=== PATIENT | female | born 2000 | race Caucasian/White ===

== ENCOUNTER 2025-06-10 13:15 | Outpatient (RCR) | payer BC, SELFPAY ==
[2025-05-28 10:40] VITALS: BMI 38.2
--- NOTE | 2025-05-28 12:20 | PC.ADMIT ---
Patient is a 24 year old college student who was referred to [facility] by her therapist secondary to stopping her medications 2 months ago and is now struggling with increased sxs of depression. According to Integrative Assessment patient spoke to crisis on 05/25/25. Patient is alert and oriented x4. She is calm and cooperative. She presented with depressed mood and anxious affect. She denied SI currently. Patient reports she stopped medications two months ago. Stated she forgot to take them one day and felt great and thought she did not need to take the medications anymore. Stated she was tired of taking medications. Patient stated, I did not notice the downward spiral I was headed towards it. It was slow and I did not notice it. I was not doing well. Patient was given a copy of her safety plan if needed. Patient reports she is on a medical withdrawal from [facility]. Patient stated, I have my associates in criminal justice and going to [employer] to get BA in Criminal Justice. I asked what her goal is when she graduates and patient stated, My goal is to reintegrate people in the criminal justice system specifically juveniles and to help them stay out of the system . Patient identified her supports stating, definitely my main family my parents and my siblings. I can go to them with anything. If I do I go to my brother first and then my family . Patient stated she has a twin brother who she is close to who is currently in college for accounting. She stated he is very smart along with her other family members. Patient stated that she does not have access to medications as her mother is holding on to them as a precaution. Patient also stated her mother did a deep dive into her room to look for any other medications. Patient denied having any other medications available to her. Asked patient how the groups were going for her today. She stated she realized after hearing others talk in group that she does not have it that bad . Medications updated with patient and patient's pharmacy. Patient stated she is only prescribed Rexulti at this time and is currently taking 1 mg daily.
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
--- NOTE | 2025-06-04 14:32 | HO.PHP ---
Tabby had left early for the day due to expressing struggling with a group member and being easily triggered by the noises that were being made. Tabby reported no safety concerns and stated she will be in attendance to program on Saturday.
--- NOTE | 2025-06-07 22:21 | P.PNPSP_ITS ---
Subjective Subjective Date of Service: 06/04/25 Reason For Visit: depression,PTSD Interim History: Patient seen for follow-up. Reviewd interim events. It's been a lot Patient got triggered in groups the other day and again today. She has reached 2 mg of the Rexulti, not sure it is doing anything. MOod still low, reactive, high anxiety. Mood is feels like someone sitting on my chest DEnies any CP, says it's her anxiety. Feels the need to get up and loeave group from the anxiety. She is agreeable to a short trials of Ativan, just to help wtih toleating groups. Denies h/h/SI. No substance or alchol use. Medication Compliance: Yes Side effects from medications: No Attending Groups: Yes Review of Systems Acute medical concerns: No Mental Status Exam Mental Status Exam Narrative: Calm, cooperative, alert, oriented. Mood anxious, depressed, affect constricted. Speech normal. No evidence of thought disorder. Thought content relevant to stressors, denies hopelessness or SI. Denies perceptual disturbance and does not appear to be internally preoccupied. Insight/judgment fair to good. Diagnostics Vital Signs (24Hr): BMI result Body Mass Index 38.2 Assessment & Plan Assessment & Plan (1) MDD (major depressive disorder), recurrent severe, without psychosis: Status: Acute Code(s): F33.2 - Major depressive disorder, recurrent severe without psychotic features (2) HI (generalized anxiety disorder): Status: Acute Code(s): F41.1 - Generalized anxiety disorder (3) PTSD (post-traumatic stress disorder): Status: Acute Code(s): F43.10 - Post-traumatic stress disorder, unspecified Plan cont PHP continue Lamictal 25 mg /day (increase by 25 mg/d q 2 weeks until titrated to 1 00 mg as tolerated) taper Rexulti to 1.5 mg 1 mg tomorrow and 0.5 mg and then off start ABilify and gradually titrate from 2-4 mg qhs start brief trial of lorazepam Routine lab work as indicated EKG, routine for baseline QTc for medication considerations as indicated UDS as indicated MassPat reviewed Continue to monitor Patient educated on: diagnosis and medication risk/benefits Informed Consent: understands Reason for contiued partial hosp. stay Substantial Risk for: med/psych decompensation Certification I certify that partial hospital treatment is medically necessary due to the symptoms and problems resulting from the patient's mental illness and the failure to treat the patient at the partial hospital level of care would likely result in the patient requiring inpatient psychiatric care which could not be prevented at a less intensive level of care. Total time managing care of this patient today __30__ minutes. Discharge Plan Discharge Attending provider: Josefa Coleman Medications: New lorazepam [Ativan] 0.5 mg tablet 0.5 mg PO DAILY PRN (Reason: anxiety) Qty: 10 0RF lamotrigine 25 mg tablet See Rx Instructions .ROUTE .COMPLEX Qty: 90 0RF Rx Instructions: take 2 tablets po daily for 2 weeks, then increase to 75 mg daily Continued aripiprazole 2 mg tablet 2 mg PO BEDTIME Qty: 30 0RF Discontinued Rexulti 2 mg Tablet 2 mg PO DAILY Patient Comments: Patient stated she is taking 1 mg currently. Rx Instructions: Patient stated she is taking 1 mg currently. Patient Education: Mood Disorders (ED), PTSD (Post Traumatic Stress Disorder) (DC), Anxiety (ED) Print Language: [place]
--- NOTE | 2025-06-10 23:31 | HO.PHPPROGNO ---
Subjective Subjective Date of Service: 06/10/25 Reason For Visit: depression,PTSD Interim History: Patient seen for follow-up, anticipating discharge at the end of program today.? I'm doing good . Used lorazepam a few times and it was helpful. Just finds it helpful just knowing there is an option to take it and finds she can ride out the anxiety. DUe to move up on Lamictal to 50 mg tomorrow. ABilify 2 mg well-tolerated and has been helpful for depression, mood and anxiety. Reports no acute issues or concerns. Medication compliant, medications well-tolerated. Denies any adverse effects.? Mood is stable.? Denies any hopelessness or SI. Denies thoughts of harming self or others at this time. Denies any aggressive ideation or HI. Denies any paranoia or AH or VH. Sleep, appetite, energy stable. Medication Compliance: Yes Side effects from medications: No Attending Groups: Yes Review of Systems Acute medical concerns: No Mental Status Exam Mental Status Exam Narrative: Alert, oriented, in no acute distress. Calm, cooperative. Mood stable, affect appropriate. Speech normal. Thought process linear, coherent, more goal-directed. Thought content related to stressors, future-oriented, denies any helplessness, hopelessness or SI.? No aggressive ideation or HI. No paranoia or delusional content elicited. No evidence of psychosis. Insight and judgment fair-good. Diagnostics Vital Signs (24Hr): BMI result Body Mass Index 38.2 Assessment & Plan Assessment & Plan (1) MDD (major depressive disorder), recurrent severe, without psychosis: Status: Acute Code(s): F33.2 - Major depressive disorder, recurrent severe without psychotic features (2) HI (generalized anxiety disorder): Status: Acute Code(s): F41.1 - Generalized anxiety disorder (3) PTSD (post-traumatic stress disorder): Status: Acute Code(s): F43.10 - Post-traumatic stress disorder, unspecified Plan Discharge from [facility] Continue regular medications? Refills sent to pharmacy Will defer further medication management to outpatient provider *Safety plan reviewed *Discharge diagnoses, treatment course, discharge plan have been reviewed with patient (including medication regime, medication management, potential side effects) as well as treatment rationale were also revisited *Discharge paperwork signed and given to patient, copy sent for scanning to chart Patient educated on: diagnosis and medication risk/benefits Informed Consent: understands Reason for contiued partial hosp. stay Substantial Risk for: stable for discharge Certification I certify that partial hospital treatment is medically necessary due to the symptoms and problems resulting from the patient's mental illness and the failure to treat the patient at the partial hospital level of care would likely result in the patient requiring inpatient psychiatric care which could not be prevented at a less intensive level of care. Total time managing care of this patient today __30__ minutes. Discharge Plan Discharge Attending provider: Josefa Coleman Medications: New lorazepam [Ativan] 0.5 mg tablet 0.5 mg PO DAILY PRN (Reason: anxiety) Qty: 10 0RF lamotrigine 25 mg tablet See Rx Instructions .ROUTE .COMPLEX Qty: 90 0RF Rx Instructions: take 2 tablets po daily for 2 weeks, then increase to 75 mg daily Continued aripiprazole 2 mg tablet 2 mg PO BEDTIME Qty: 30 0RF Discontinued Rexulti 2 mg Tablet 2 mg PO DAILY Patient Comments: Patient stated she is taking 1 mg currently. Rx Instructions: Patient stated she is taking 1 mg currently. Patient Education: Mood Disorders (ED), PTSD (Post Traumatic Stress Disorder) (DC), Anxiety (ED) Print Language: Albanian
== END 2025-06-10 23:59 | disposition home or self-care (01) ==
LOC: HO.PHPA 13:15
PROVIDERS: Visit Provider Psychiatry & Neurology Psychiatry
DX: F33.2 Major depressive disorder, recurrent severe without psychotic features (principal); F41.1 Generalized anxiety disorder; F43.10 Post-traumatic stress disorder, unspecified; Z91.51 Personal history of suicidal behavior; Z62.810 Personal history of physical and sexual abuse in childhood
CPT/HCPCS: 90791; 90853

== ENCOUNTER → 2025-06-10 13:15 | Outpatient (BNV) | payer BC, SELFPAY | PROVIDERS: Visit Provider Psychiatry & Neurology Psychiatry | DX: F33.2 Major depressive disorder, recurrent severe without psychotic features (principal); F41.1 Generalized anxiety disorder; F43.10 Post-traumatic stress disorder, unspecified | CPT/HCPCS: 90792; 99213; 99214 ==